=== PATIENT | female | born 2000 | race Asian ===

== ENCOUNTER 2022-03-31 12:24 | Emergency (ER) | payer OTHER ==
[~2022-03-31] VITALS: Ht 157.5 cm; Wt 52.2 kg
[2022-03-31 12:25] VITALS: BP_SYST 115
--- NOTE | 2022-03-31 12:31 | NUR ---
Patient triaged and placed in waiting room. VSS and patient appears in no acute distress at this time. Accompanied by FRIEND, awaiting available bed, and MD notified of need for MSE.
--- NOTE | 2022-03-31 12:50 | NUR ---
PT STATES LOWER ABD AND LEFT SIDED BACK PAIN WITH DYSURIA. STATE SHE HAS BEEN HAVING PANIC ATTACKS AND ANXIETY OVER HAVING THIS PAIN.
[2022-03-31 13:42] LABS: BILIRUBIN,URINE NEGATIVE (NEGATIVE); BLOOD, URINE 3+ (NEGATIVE); COLOR,URINE YELLOW (YELLOW); GLUCOSE,URINE NEGATIVE (NEGATIVE); KETONES,URINE 1+ (NEGATIVE); LEUKOCYTE ESTERASE ,URINE 3+ (NEGATIVE); NITRITE, URINE POSITIVE (NEGATIVE); PROTEIN URINE 2+ (NEGATIVE); UROBILINOGEN,URINE 0.2 (0.2-1.0)
[2022-03-31 13:50] LABS: CLARITY/URINE HAZY (CLEAR)
[2022-03-31 14:49] LABS: BACTERIA,URINE MANY /HPF (None Seen); RBC,URINE 50-80 /HPF (0-3); WBC,URINE 50-80 /HPF (0-3)
--- NOTE | 2022-03-31 14:51 | NUR ---
DR HYLTON EVALUATING PT IN TRIAGE ROOM
[2022-03-31] MEDS ORDERED: CEPH250C PO (15:04)
[2022-03-31] MEDS ORDERED: PHEN-726 PO (15:04)
[2022-03-31] MEDS ORDERED: IBUP-1969 PO (15:04)
--- NOTE | 2022-03-31 15:27 | NUR ---
Patient given written and verbal discharge instructions and verbalizes understanding. ER MD discussed with patient the results and treatment provided. Patient in stable condition. ID arm band removed. Rx of KEFLEX, IBUPROFEN, PYRIDIUM given. Patient educated on pain management and to follow up with PMD. Pain Scale 0/10. Opportunity for questions provided and answered. Medication side effect fact sheet provided.
== END 2022-03-31 15:27 | disposition home or self-care (01) ==
LOC: SED 12:24
DX: N39.0 Urinary tract infection, site not specified (principal); R30.0 Dysuria; M54.50 Low back pain, unspecified; R50.9 Fever, unspecified; Z79.899 Other long term (current) drug therapy
CPT/HCPCS: 81000; 81025; 87086; 99283

== ENCOUNTER 2022-11-17 13:20 | Emergency (ER) | payer MEDICAID, OTHER ==
[~2022-11-17] VITALS: Ht 160 cm; Wt 51.3 kg
[2022-11-17 13:20] VITALS: BP_SYST 109
[~2022-11-17 13:20] MED LIST: CEPH250C PO; IBUP-1969 PO; PHEN-726 PO
--- NOTE | 2022-11-17 13:25 | NUR ---
Patient triaged and placed in waiting room. VSS and patient appears in no acute distress at this time. Accompanied by BOYFRIEND, awaiting available bed, and MD notified of need for MSE.
--- NOTE | 2022-11-17 13:30 | NUR ---
Pt brought by self, A&Ox4, pt presents to ER with cough and congestion, VSS, skin pink and warm, cap refill <3, VSS, will cont to monitor.
--- NOTE | 2022-11-17 14:11 | NUR ---
Covid and flu swab sent to the lab
--- NOTE | 2022-11-17 14:11 | NUR ---
Yessica lozanojordyn in [facility] - 11/17/22 at 1411 by [email or web address] c
--- NOTE | 2022-11-17 17:01 | NUR ---
ER at bedside examining patient.
[2022-11-17] MEDS ORDERED: NAPR-690 PO (17:08)
--- NOTE | 2022-11-17 17:29 | NUR ---
Patient given written and verbal discharge instructions and verbalizes understanding. ER MD discussed with patient the results and treatment provided. Patient in stable condition. ID arm band removed. IV catheter removed intact and dressing applied, no active bleeding. Opportunity for questions provided and answered. Medication side effect fact sheet provided.
[2022-11-17 17:31] VITALS: BP_SYST 109
== END 2022-11-17 17:29 | disposition home or self-care (01) ==
LOC: SED 13:20
DX: B34.9 Viral infection, unspecified (principal); R51.9 Headache, unspecified; R68.83 Chills (without fever); M79.10 Myalgia, unspecified site; Z79.899 Other long term (current) drug therapy; Z20.822 Contact with and (suspected) exposure to COVID-19
CPT/HCPCS: 36415; 99283